=== PATIENT | male | born 1965 | race Caucasian/White ===

== ENCOUNTER 2018-04-02 04:37 | Emergency (ER) | payer MEDICAID ==
[2018-04-02] MEDS ORDERED: RIFA550T PO (04:46)
[2018-04-02] MEDS ORDERED: NS(*) 0.9% 1000 ML BAG 1,000 ML IV ONE (04:51)
--- NOTE | 2018-04-02 04:51 | ER Report ---
History and Physical Time Seen By MD: 04:43 HPI/ROS CHIEF COMPLAINT: Vomiting HISTORY OF PRESENT ILLNESS: 52-year-old male alcoholic with a history of alcoholic liver disease has been drinking since the March. He is concerned he may also pancreatitis as well as aggravation of his liver disease from drinking. And states he's followed by GI specialist. Patient's had no hematemesis or black stools. Patient also thinks she maybe having withdrawals. REVIEW OF SYSTEMS: Respiratory: No cough, no dyspnea. Cardiovascular: No chest pain, no palpitations. Gastrointestinal: As above Musculoskeletal: No back pain. Allergies: Coded Allergies: No Known Drug Allergies (Unverified , 04/02/18) Home Meds Active Scripts Diazepam (VALIUM) 5 Mg Tablet, 1-2 TAB PO TID Y for alcohol withdrawal symptoms , #15 TAB Prov:KATHIA COATES DO 04/02/18 Promethazine Hcl (PROMETHAZINE HCL) 25 Mg Tablet, 25 MG PO Q4H Y for NAUSEA/ VOMITING, #14 TAB Prov:KATHIA COATES DO 04/02/18 Reported Medications Rifaximin (XIFAXAN) 550 Mg Tablet, 550 MG PO BID 04/02/18 Reviewed Nurses Notes: Yes Old Medical Records Reviewed: Yes Constitutional Vital Sign - Last 24 Hours 04/02/18 04/02/18 04/02/18 04/02/18 04:42 04:43 04:52 05:00 Temp 97.6 Pulse 125 115 Resp 16 B/P (MAP) 150/97 150/97 (114) 149/91 (110) Pulse Ox 93 92 O2 Delivery Room Air 04/02/18 04/02/18 04/02/18 04/02/18 05:07 05:12 05:27 05:32 Pulse 105 99 96 99 Pulse Ox 90 91 85 04/02/18 04/02/18 04/02/18 04/02/18 05:35 05:43 05:48 06:00 Pulse 100 98 B/P (MAP) 141/83 (102) 139/91 (107) Pulse Ox 96 96 O2 Flow Rate 1.0 04/02/18 06:03 Pulse 103 Pulse Ox 96 Physical Exam General Appearance: The patient is alert, has no immediate need for airway protection and no current signs of toxicity. Vital signs stable, afebrile, pulse ox normal Eyes: Pupils equal and round no injection. Icteric sclera, oropharynx with mild erythema, no exudate Respiratory: Chest is non tender, lungs are clear to auscultation. Cardiac: regular rate and rhythm Gastrointestinal: Abdomen is soft and non tender, no masses, bowel sounds normal. No hepatomegaly noted Musculoskeletal: Neck: Neck is supple and non tender. Extremities have full range of motion and are non tender. Skin: No rashes or lesions. DIFFERENTIAL DIAGNOSIS: After history and physical exam differential diagnosis was considered for abdominal pain including but not limited to appendicitis, cholecystitis, gastritis, alcohol withdrawal, alcohol intoxication, gastroneuritis, food poisoning, viral syndrome, pancreatitis and urinary tract infection. Medical Decision Making Data Points Result Diagram: 04/02/18 0449 04/02/18 0449 Laboratory Hematology Test 04/02/18 04:42 04/02/18 04:49 Urine Color [place] Urine Clarity Clear Urine pH Color interference Urine Specific [place] Color interference Urine Protein Color interference Urine Glucose (UA) Negative mg/dL (NEGATIVE) Urine Ketones Color interference Urine Blood Color interference Urine Nitrite Color interference Urine Bilirubin Color interference Urine Urobilinogen Color interference Urine Leukocyte Esterase Color interference Urine RBC 1 /HPF (0-2/HPF) Urine WBC 4 /HPF (0-5/HPF) Urine Squamous Epithelial Cells Moderate /LPF (</=FEW) Urine Transitional Epithelial Cells Few /LPF (NONE-FEW) Urine Bacteria Negative /HPF (NONE-FEW) Urine Mucus Few /HPF (NONE-FEW) Red Blood Count 4.82 M/uL (4.00-5.60) Mean Corpuscular Volume 105.4 fL (80.0-96.0) Mean Corpuscular Hemoglobin 38.5 pg (26.0-33.0) Mean Corpuscular Hemoglobin Concent 36.5 g/dL (32.0-36.0) Red Cell Distribution Width 13.2 % (11.5-14.5) Mean Platelet Volume 7.7 fL (7.2-11.1) Neutrophils (%) (Auto) 67.9 % (39.4-72.5) Lymphocytes (%) (Auto) 18.5 % (17.6-49.6) Monocytes (%) (Auto) 12.5 % (4.1-12.4) Eosinophils (%) (Auto) 0.3 % (0.4-6.7) Basophils (%) (Auto) 0.8 % (0.3-1.4) Nucleated RBC Relative Count (auto) 0.3 /100WBC Neutrophils # (Auto) 6.6 K/uL (2.0-7.4) Lymphocytes # (Auto) 1.8 K/uL (1.3-3.6) Monocytes # (Auto) 1.2 K/uL (0.3-1.0) Eosinophils # (Auto) 0.0 K/uL (0.0-0.5) Basophils # (Auto) 0.1 K/uL (0.0-0.1) Nucleated RBC Absolute Count (auto) 0.03 K/uL Sodium Level 140 mmol/L (137-145) Potassium Level 3.6 mmol/L (3.5-5.0) Chloride Level 88 mmol/L (98-107) Carbon Dioxide Level 30 mmol/L (22-30) Blood Urea Nitrogen 18 mg/dl (9-21) Creatinine 0.80 mg/dl (0.66-1.25) Glomerular Filtration Rate Calc > 60.0 Random Glucose 147 mg/dl (75-110) Calcium Level 9.6 mg/dl (8.4-10.2) Total Bilirubin 8.6 mg/dl (0.2-1.3) Aspartate Amino Transf (AST/SGOT) 119 U/L (0-35) Alanine Aminotransferase (ALT/SGPT) 59 U/L (0-56) Alkaline Phosphatase 118 U/L (0-126) Total Protein 8.9 g/dl (6.3-8.2) Albumin 4.6 g/dl (3.5-5.0) Amylase Level 124 U/L (0-110) Lipase 98 U/L (23-300) Chemistry Test 04/02/18 04:42 04/02/18 04:49 Urine Color [place] Urine Clarity Clear Urine pH Color interference Urine Specific [place] Color interference Urine Protein Color interference Urine Glucose (UA) Negative mg/dL (NEGATIVE) Urine Ketones Color interference Urine Blood Color interference Urine Nitrite Color interference Urine Bilirubin Color interference Urine Urobilinogen Color interference Urine Leukocyte Esterase Color interference Urine RBC 1 /HPF (0-2/HPF) Urine WBC 4 /HPF (0-5/HPF) Urine Squamous Epithelial Cells Moderate /LPF (</=FEW) Urine Transitional Epithelial Cells Few /LPF (NONE-FEW) Urine Bacteria Negative /HPF (NONE-FEW) Urine Mucus Few /HPF (NONE-FEW) White Blood Count 9.7 k/uL (4.5-11.0) Red Blood Count 4.82 M/uL (4.00-5.60) Hemoglobin 18.5 g/dL (14.0-18.0) Hematocrit 50.8 % (42.0-52.0) Mean Corpuscular Volume 105.4 fL (80.0-96.0) Mean Corpuscular Hemoglobin 38.5 pg (26.0-33.0) Mean Corpuscular Hemoglobin Concent 36.5 g/dL (32.0-36.0) Red Cell Distribution Width 13.2 % (11.5-14.5) Platelet Count 72 K/uL (150-450) Mean Platelet Volume 7.7 fL (7.2-11.1) Neutrophils (%) (Auto) 67.9 % (39.4-72.5) Lymphocytes (%) (Auto) 18.5 % (17.6-49.6) Monocytes (%) (Auto) 12.5 % (4.1-12.4) Eosinophils (%) (Auto) 0.3 % (0.4-6.7) Basophils (%) (Auto) 0.8 % (0.3-1.4) Nucleated RBC Relative Count (auto) 0.3 /100WBC Neutrophils # (Auto) 6.6 K/uL (2.0-7.4) Lymphocytes # (Auto) 1.8 K/uL (1.3-3.6) Monocytes # (Auto) 1.2 K/uL (0.3-1.0) Eosinophils # (Auto) 0.0 K/uL (0.0-0.5) Basophils # (Auto) 0.1 K/uL (0.0-0.1) Nucleated RBC Absolute Count (auto) 0.03 K/uL Glomerular Filtration Rate Calc > 60.0 Calcium Level 9.6 mg/dl (8.4-10.2) Total Bilirubin 8.6 mg/dl (0.2-1.3) Aspartate Amino Transf (AST/SGOT) 119 U/L (0-35) Alanine Aminotransferase (ALT/SGPT) 59 U/L (0-56) Alkaline Phosphatase 118 U/L (0-126) Total Protein 8.9 g/dl (6.3-8.2) Albumin 4.6 g/dl (3.5-5.0) Amylase Level 124 U/L (0-110) Lipase 98 U/L (23-300) Urinalysis Test 04/02/18 04:42 Urine Color [place] Urine Clarity Clear Urine pH Color interference Urine Specific [place] Color interference Urine Protein Color interference Urine Glucose (UA) Negative mg/dL (NEGATIVE) Urine Ketones Color interference Urine Blood Color interference Urine Nitrite Color interference Urine Bilirubin Color interference Urine Urobilinogen Color interference Urine Leukocyte Esterase Color interference Urine RBC 1 /HPF (0-2/HPF) Urine WBC 4 /HPF (0-5/HPF) Urine Squamous Epithelial Cells Moderate /LPF (</=FEW) Urine Transitional Epithelial Cells Few /LPF (NONE-FEW) Urine Bacteria Negative /HPF (NONE-FEW) Urine Mucus Few /HPF (NONE-FEW) ED Course/Re-evaluation Clinical Indication for ER IV: Hydration, IV Access ED Course Patient was admitted to an examination room. H&P was done. The differential diagnoses was considered. On clinical examination. Patient has a benign nonsurgical abdomen. His vital signs are stable. Patient with vomiting. Patient with a known history of alcoholic liver disease. Patient was treated with IV fluids, Zofran and Phenergan. His diagnostic studies show thrombus cytopenia an elevated MCV consistent with chronic alcoholism. Patient's H&H is stable. His bilirubin is 8.6. Patient was discharged home after his vomiting was controlled with a prescription for Valium and Phenergan to control his symptoms. He is advised to avoid alcohol and follow up with his GI specialist on returning home. Decision to Disposition Date: Apr 02, 2018 Decision to Disposition Time: 05:54 Depart Departure Latest Vital Signs Vital Signs Date Time Temp Pulse Resp B/P (MAP) Pulse Ox O2 Delivery O2 Flow Rate FiO2 04/02/18 06:03 103 96 04/02/18 06:00 139/91 (107) 04/02/18 05:35 1.0 04/02/18 04:42 97.6 16 Room Air Impression: Primary Impression: Vomiting Additional Impressions: Alcohol withdrawal Alcoholic liver disease Condition: Improved Disposition: HOME OR SELF-CARE New Scripts Diazepam (VALIUM) 5 Mg Tablet 1-2 TAB PO TID Y for alcohol withdrawal symptoms, #15 TAB Prov: KATHIA COATES DO 04/02/18 Promethazine Hcl (PROMETHAZINE HCL) 25 Mg Tablet 25 MG PO Q4H Y for NAUSEA/VOMITING, #14 TAB Prov: KATHIA COATES DO 04/02/18 Patient Instructions: Acute Nausea and Vomiting (ED), Liver Disease Diet (GEN) Additional Instructions: Follow-up with your GI specialists Avoid drinking alcohol Problem Qualifiers Primary Impression: Vomiting Vomiting type: unspecified Vomiting Intractability: unspecified Nausea presence: with nausea Qualified Codes: R11.2 - Nausea with vomiting, unspecified Additional Impressions: Alcohol withdrawal Complication of substance-induced condition: uncomplicated Qualified Codes: F10.230 - Alcohol dependence with withdrawal, uncomplicated KATHIA COATES Edgardo SMITH Apr 02, 2018 04:51
[2018-04-02] MEDS ORDERED: PROMETHAZINE 25 MG/ML 1 ML AMP IVP ONE (04:55)
[2018-04-02] MEDS ORDERED: ONDANSETRON 4 MG/2 ML VIAL IVP ONE (04:55)
[2018-04-02] MEDS ORDERED: LIDOCAINE 2% VISC SLN 15ML UDC PO ONE (05:15)
[2018-04-02] MEDS ORDERED: ATRO/SCOPOL/HYOSCY/PB 5 ML ELX PO ONE (05:15)
[2018-04-02] MEDS ORDERED: MAG HYD/AL HYD/SIMETH 30ML UDC PO ONE (05:15)
[2018-04-02 05:31] LABS: PLATELET COUNT, AUTOMATED 72 K/uL (150-450)
[2018-04-02 06:00] VITALS: BP 139/91
[2018-04-02] MEDS ORDERED: DIA5 PO (06:02)
[2018-04-02] MEDS ORDERED: PROM-110 PO (06:02)
== END 2018-04-02 06:13 | disposition home or self-care (01) ==
LOC: ER 04:45
DX: F10.230 Alcohol dependence with withdrawal, uncomplicated (principal); K70.9 Alcoholic liver disease, unspecified; R11.0 Nausea
CPT/HCPCS: 81001; 82150; 83690; 85025; 96361; 96374; 96375; 99284; J2405; J2550; J7030; 82040; 82247; 82310; 82374; 82435; 82565; 82947; 84075; 84132; 84155; 84295; 84450; 84460; 84520